=== PATIENT | male | born 1945 | race Hispanic/Latino ===

== ENCOUNTER 2018-02-25 19:24 | Emergency (ER) | payer MEDICARE, OTHER ==
--- NOTE | 2018-02-25 20:25 | RAD ---
LEFT ANKLE: 02/25/18 Three views. HISTORY: Ankle pain. Mild soft tissue swelling. No evidence of fracture. No osseous abnormality. Very mild degenerative c hange at the tibiotalar joint with some minimal spurring at the tibia. IMPRESSION: No acute abnormality. POS: [facility]
== END 2018-02-25 21:06 | disposition home or self-care (01) ==
LOC: MADERS 19:24
DX: M19.072 Primary osteoarthritis, left ankle and foot (principal); E03.9 Hypothyroidism, unspecified; E78.5 Hyperlipidemia, unspecified; I10 Essential (primary) hypertension; Z79.82 Long term (current) use of aspirin; Z79.899 Other long term (current) drug therapy; Z79.84 Long term (current) use of oral hypoglycemic drugs
CPT/HCPCS: 36416